=== PATIENT | female | born 1970 | race African-American/Black ===

== ENCOUNTER 2020-09-01 01:39 | Emergency (ER) | payer SELFPAY ==
[~2020-09-01] VITALS: Ht 165.1 cm; Wt 69.0 kg
[2020-09-01] MEDS ORDERED: MAGNESIUM/ALUMINUM HYDROXIDE/SIMETHICONE 30ML UDC PO STA (02:12)
[2020-09-01] MEDS ORDERED: FAMOTIDINE 20MG/2ML VIAL IV STA (02:12)
[2020-09-01] MEDS ORDERED: SODIUM CHLORIDE 0.9% 1,000 ML IV ONE (02:15)
[2020-09-01] MEDS ORDERED: ONDANSETRON HCL 4MG/2ML INJ IV ONE ×2 (02:30→05:30)
[2020-09-01 03:05] LABS: CHLORIDE 108 mEq/L (98-107)
[2020-09-01 03:12] LABS: BASOPHILS % 0.6 % (0.0-2.0); EOSINOPHILS % 0.5 % (0.0-5.0); HEMATOCRIT. 37.4 % (36.0-48.0); HEMOGLOBIN. 12.3 g/dL (12.0-16.0); LYMPHOCYTES % 26.5 % (20.0-50.0); MEAN CORPUSCULAR HEMOGLOBIN 27.9 pg (28.0-32.0); MEAN CORPUSCULAR VOLUME 84.7 fL (81.0-99.0); MEAN PLATELET VOLUME 7.3 fl (7.4-10.4); MONOCYTES % 7.5 % (2.0-8.0); NEUTROPHILS % 64.9 % (40.0-76.0); PLATELET 252 x1000/uL (130-400); RED BLOOD CELL COUNT 4.41 mill/uL (4.2-5.4); RED CELL DISTRIBUTION WIDTH 13.8 % (11.6-14.6)
[2020-09-01] MEDS ORDERED: DICYCLOMINE 10 MG/5 ML ORAL SYR PO STA (05:32)
[2020-09-01] MEDS ORDERED: VISCOUS LIDOCAINE 2% 15 ML UDC PO STA (05:32)
[2020-09-01] MEDS ORDERED: PROT20 MT (05:38)
[2020-09-01 06:20] VITALS: BP 115/71
== END 2020-09-01 07:04 | disposition home or self-care (01) ==
LOC: ER 01:39
DX: R10.13 Epigastric pain (principal); K21.9 Gastro-esophageal reflux disease without esophagitis; Z88.5 Allergy status to narcotic agent
CPT/HCPCS: 36415; 80053; 82010; 83690; 85025; 96361; 96374; 96375; 99284; J2405; J3490; J7030